=== PATIENT | female | born 1965 | race Caucasian/White ===

== ENCOUNTER 2023-07-09 23:15 | Emergency (ER) | payer MEDICAID ==
[~2023-07-09] VITALS: Ht 165.1 cm; Wt 131.5 kg
[2023-07-09 23:27] VITALS: BP 112/69; PULSE 84; RESP 18; TEMP 98.6; O2SAT 95
[2023-07-10 00:27] VITALS: BP 112/69; TEMP 98.6
[2023-07-10] MEDS: ALBUTEROL 0.083% 2.5 MG/3 ML NEBU INH ONE (01:15)
[2023-07-10 01:20] VITALS: PULSE 71; RESP 20; O2SAT 93
[2023-07-10] MEDS ORDERED: ALBU0.0912 INH (01:29)
[2023-07-10] MEDS ORDERED: FLUT1DSK2 IH (01:29)
[2023-07-10] MEDS ORDERED: LEVO-481 PO (01:29)
[2023-07-10] MEDS ORDERED: METH4TAB1 PO (01:29)
== END 2023-07-10 01:30 | disposition home or self-care (01) ==
LOC: MED 23:15
DX: J20.9 Acute bronchitis, unspecified (principal); J45.909 Unspecified asthma, uncomplicated; I10 Essential (primary) hypertension; E11.9 Type 2 diabetes mellitus without complications; Z79.4 Long term (current) use of insulin; Z79.899 Other long term (current) drug therapy; Z91.018 Allergy to other foods
CPT/HCPCS: 71045; 94640; 99283; J7613